=== PATIENT | female | born 1960 | race Caucasian/White ===

== ENCOUNTER 2016-03-15 16:56 | Emergency (ER) | payer OTHER ==
[~2016-03-15] VITALS: Ht 157.5 cm; Wt 106.6 kg
[~2016-03-15 16:56] MED LIST: ADVAIR HFA 230M12 GM; FLEXERIL PO; GABAPENTIN600 M1; HYDROCODONE-APA1 TA1 PO; LANTUS; LISINOPRIL10 MG; NOVOLOG100 UNIT/1; VENTOLIN HFA 1818 GM; ZOCOR20 MG
[2016-03-15] MEDS ORDERED: HYDROCODON-ACE1 EAC7 PO (17:12)
[2016-03-15 17:13] LABS: URINE BILIRUBIN NEGATIVE (Negative); URINE BLOOD 3+ (Negative); URINE COLOR YELLOW; URINE GLUCOSE-RANDOM* 3+ (Negative); URINE KETONES NEGATIVE (Negative); URINE LEUKOCYTES-REFLEX TRACE (Negative); URINE PROTEIN (DIPSTICK) TRACE (Negative); URINE SPECIFIC GRAVITY <= 1.005 (1.003-1.035)
[2016-03-15] MEDS ORDERED: ASPIR 8181 MG PO (17:13)
[2016-03-15 17:22] LABS: CASTS None Seen /LPF (None Seen); SQUAMOUS >10 Many /LPF (0-3)
[2016-03-15 17:23] LABS: CRYSTALS None Seen /LPF (None Seen); URINE RBC 0-2 Rare /HPF (0-2); URINE WBC-REFLEX 6-15 Few /HPF (0-5); WBC CLUMPS Few (None Seen)
[2016-03-15 17:27] LABS: ABSOLUTE NEUTROPHILS 4.6 thou/uL (1.4-8.2); BASOPHILS 1.2 % (0.0-2.0); EOSINOPHILS 2.9 % (0.0-3.0); HEMATOCRIT 43.4 % (37.0-47.0); HEMOGLOBIN 14.8 gm/dL (12.0-15.0); LYMPHOCYTES 31.4 % (24.0-44.0); MCH 29.8 pg (26.0-34.0); MCHC 34.2 % (28.0-37.0); MCV 87.2 fL (80.0-100.0); MONOCYTES 7.2 % (1.0-8.0); PLATELET COUNT 208 thou/uL (150-400); POLYS 57.3 % (36.0-66.0); RBC 4.98 mil/uL (4.20-5.00); RDW 13.6 % (10.5-14.5)
[2016-03-15 17:29] LABS: MANUAL DIFF NO
[2016-03-15 17:42] LABS: CALCIUM 8.9 mg/dL (8.5-10.1); CREATININE 0.9 mg/dL (0.6-1.3); POTASSIUM 4.8 mmol/L (3.5-5.1)
[2016-03-15] MEDS ORDERED: KEFLEX500 MG PO (18:28)
[2016-03-15] MEDS ORDERED: NORCO 5-325 TA1 EACH PO (18:28)
[2016-03-15 18:41] VITALS: BP 103/73
== END 2016-03-15 18:43 | disposition home or self-care (01) ==
LOC: ER 16:56
PROVIDERS: Emergency Medicine
DX: S40.021A Contusion of right upper arm, initial encounter (principal); S90.122A Contusion of left lesser toe(s) without damage to nail, initial encounter; L03.032 Cellulitis of left toe; E11.65 Type 2 diabetes mellitus with hyperglycemia; N39.0 Urinary tract infection, site not specified; F17.210 Nicotine dependence, cigarettes, uncomplicated; W19.XXXA Unspecified fall, initial encounter; Y93.89 Activity, other specified; Y92.89 Other specified places as the place of occurrence of the external cause; Y99.8 Other external cause status

== ENCOUNTER 2016-07-05 17:26 | Emergency (ER) | payer OTHER ==
[~2016-07-05] VITALS: Ht 157.5 cm; Wt 106.1 kg
[~2016-07-05 17:26] MED LIST changes: +ADVAIR HFA 230M12 GM INH; +ASPIR 8181 MG PO; +HYDROCODON-ACE1 EAC7 PO; +KEFLEX500 MG PO; +MOBIC15 MG PO; +NORCO 5-325 TA1 EACH PO
[2016-07-05] MEDS ORDERED: NORCO 5-325 TA1 EACH PO (18:32)
[2016-07-05 19:48] VITALS: BP 138/73
== END 2016-07-05 19:49 | disposition home or self-care (01) ==
LOC: ER 17:26
DX: S80.02XA Contusion of left knee, initial encounter (principal); S80.01XA Contusion of right knee, initial encounter; L30.4 Erythema intertrigo; E66.8 Other obesity; E11.42 Type 2 diabetes mellitus with diabetic polyneuropathy; F17.210 Nicotine dependence, cigarettes, uncomplicated; Z88.2 Allergy status to sulfonamides; W18.39XA Other fall on same level, initial encounter; Y93.89 Activity, other specified; Y92.89 Other specified places as the place of occurrence of the external cause; Y99.8 Other external cause status

== ENCOUNTER 2016-07-26 01:04 | Emergency (ER) | payer OTHER ==
[~2016-07-26] VITALS: Ht 154.9 cm; Wt 107.5 kg
[2016-07-26] MEDS ORDERED: CLEOCIN HCL150 MG PO (03:28)
[2016-07-26 03:39] VITALS: BP 121/87
== END 2016-07-26 03:44 | disposition home or self-care (01) ==
LOC: ER 01:04
DX: H66.41 Suppurative otitis media, unspecified, right ear (principal); E11.9 Type 2 diabetes mellitus without complications; F17.210 Nicotine dependence, cigarettes, uncomplicated; Z88.2 Allergy status to sulfonamides; Z79.4 Long term (current) use of insulin

== ENCOUNTER 2016-10-03 02:13 | Inpatient (IN) | payer OTHER ==
[2016-10-03] VITALS (13 sets, daily range): BP systolic 96–149; BP diastolic 58–95
[~2016-10-03] VITALS: Ht 154.9 cm; Wt 110.7 kg
--- NOTE | ~2016-10-03 | EKG ---
[address] [address] ELECTROCARDIOGRAM REPORT Name: LIANET PERDUE Room #: 214-[facility] IN M.R.#: [id number] Admission: 10/03/16 Attend Phys: Delvin Hollingsworth MD Discharge: 10/04/16 Date of : 62 Report #: [id number] THIS REPORT FOR: //name// [facility] Test Date: 2016-10-03 Test Time: 15:14:37 Pat Name: LIANET PERDUE Department: Room: 214 Gender: F Sharepoint Consultant: emeka : 1960 Requested By: Royer Aquino Order Number: [id number] MD: Royer Aquino Measurements Intervals [place] Rate: 86 P: 61 WV: 205 QRS: 13 QRSD: 88 T: 52 QT: 382 QTc: 457 Interpretive Statements Sinus rhythm Borderline prolonged WV interval Anterior infarct, old Compared to ECG 10/03/2016 02:19:45 No significant change Electronically Signed On 10-04-2016 15:43:24 CDT by Royer Aquino [email or web address] <ELECTRONICALLY SIGNED> By: Royer Aquino MD 10/04/16 1543 1514 13 Royer Aquino MD /MIRANDA
--- NOTE | ~2016-10-03 | HC ---
[facility] [place] [address] CONSULTATION Name: LIANET PERDUE Room #: 214-P [facility] IN ..#: [id number] Admission: 10/03/16 Attend Phys: Delvin Hollingsworth MD Discharge: Date of : 62 Report #: [id number] THIS REPORT FOR: //name// CC: Delvin Hollingsworth NO PCP INDICATION: Chest pains. HISTORY OF PRESENT ILLNESS: This is a 56-year-old female with multiple CAD risk factors presenting with chest discomfort. She reported a tightness in the substernal area, nonradiating. It was not associated with any shortness of breath or diaphoresis. It would come and go, with no particular pattern. The patient has a history of obesity with diminished ambulation secondary to back pains. Recently, she has been experiencing episodes or diaphoresis after eating. She does have poorly controlled diabetes mellitus. She takes medications for underlying hypertension, hypercholesterolemia and asthma. There is no history of fever, PND or orthopnea. PAST MEDICAL HISTORY: Diabetes mellitus, hypertension, hypercholesterolemia, obesity, and general debility. MEDICATIONS: Include aspirin once a day, Advair inhaler, simvastatin 10 mg daily, Zestril 10 mg daily, insulin. ALLERGIES: SULFA. SOCIAL HISTORY: Half a pack of cigarettes per day. FAMILY HISTORY: Negative for premature CAD. REVIEW OF SYSTEMS: A full 10-point review of systems performed. Only the pertinent positives and negatives are described in the HPI. PHYSICAL EXAMINATION: VITAL SIGNS: Blood pressure is 120/70, heart rate is 100 beats per minute. GENERAL APPEARANCE: Is an overweight female in no acute respiratory distress. HEAD AND EYES: Normocephalic. Sclerae anicteric. ENT: Oral mucosa moist. NECK: Supple. LUNGS: Diminished breath sounds at the bases. CARDIAC: Distant heart sounds, S1, S2 positive. ABDOMEN: Soft, protuberant, bowel sounds positive. EXTREMITIES: No major joint deformities. No cyanosis. ECG reveals sinus rhythm, Q-waves in leads V1 through V3 and leads III and aVF. LABORATORY VALUES: White count is 8.7, hemoglobin is 13.5, troponins are [facility] [address] [place] [address] CONSULTATION Name: LIANET PERDUE Shantanu Room #: 214-P [facility] IN .R.#: [id number] Admission: 10/03/16 Attend Phys: Delvin Hollingsworth MD Discharge: Date of : 62 Report #: [id number] negative. Sodium is 129, creatinine is 1.2. IMPRESSION/PLAN: 1. Acute coronary syndrome. The patient has significant CAD risk factors as described above. In addition, the ECG reveals prior infarct. We discussed the pros and cons of noninvasive stress testing versus cardiac catheterization. Given her history on presentation, the plan is to proceed with a cardiac catheterization. All questions were answered. The patient understands and wishes to proceed. 2. Diabetes mellitus, as per primary. Continue with insulin regimen. 3. Hypertension, continue with the MARCELLA inhibitor. 4. Tobacco use, complete smoking cessation is recommended. 5. Hypercholesterolemia, continue with statin therapy. <ELECTRONICALLY SIGNED> By: Royer Aquino MD 10/03/16 2038 1022 1125 Royer Aquino MD /nt
--- NOTE | ~2016-10-03 | CATHLAB ---
[facility] [place] [address] INVASIVE PROCEDURE REPORT Name: LIANET PERDUE Room #: 214-P ADM IN M.R.#: [id number] Admission: 10/03/16 Attend Phys: Ruben Garcia Discharge: Date of : 62 Date of Service: 10/03/16 1434 Report #: [id number] THIS REPORT FOR: //name// APPROVED REPORT Patient Details Patient Status: In-Patient Room #: The patient is a 56 year-old female Event Personnel Royer Aquino Granulator Operator, Kenton Quinn Monitor, Yoni Hensley Monitor, Antonella Marshall RN RN, , Torri Lr RN RN, Leanna Long Scrub Procedures Performed Art Access - R radial artery LINETTE Place w/wo Plasty Single RAMUS Inter 713021 Left Heart Cath w/or w/o Coronaries [id number] [facility] [address] Initial Mod Sed Same Phys/QHP Gr5y 723216 Indication Unstable angina Risk Factors Hypercholesterolemia, Hypertension, Diabetes Tobacco History () Procedure Narrative The patient was brought urgently to the Cardiac Catheterization Laboratory and was prepped and draped in a sterile manner. The Right Wrist^ was infiltrated with 1% Lidocaine subcutaneous anesthesia. A TRANSRADIAL SLENDER 6F iMICROQDESHipLogiqTH KIT #[id number] sheath was inserted into the Right Radial Artery^. Coronary angiography was performed using coronary diagnostic catheters. The right coronary system was accessed and visualized with a JR 4 catheter. The left coronary system was accessed and visualized with a JL 3.5 catheter. The left ventricle was accessed and visualized with a Pigtail catheter. Left ventricular/Aortic Valve gradient assessed via catheter pullback. Left ventriculogram was performed in 30 degree projection. The patient tolerated the procedure well and there were no complications associated with the procedure. There was no hematoma. Intraoperative Conscious Sedation Sedation start time: 12:44 Case end Time: 13:40 Fentanyl 25 mcg Versed 2 mg [facility] [place] [place] [address] INVASIVE PROCEDURE REPORT Name: IRONLIANET Shantanu Room #: 214-P [facility] IN ..#: [id number] Admission: 10/03/16 Attend Phys: Ruben Garcia Discharge: Date of : 62 Date of Service: 10/03/16 1434 Report #: [id number] Fluoro Time: 12.29 minutes Dose: DAP 52565.15 cGycm2 2430 mGy Contrast Type and Amount: Visipaque 265 ml Coronary Angiography The patient's coronary anatomy is co- dominant. Diagnostic Cath Left Main No flow-limiting lesions LAD Moderate stenosis in mid segment, 40%. Mild diffuse disease in distal segment, 30%. Circumflex Codominant vessel with mild diffuse disease in proximal and mid segments, 30%. OM1 No flow-limiting lesions OM2 No flow-limiting lesions Right Coronary Modest stenosis in mid segment, 50-60%. Ramus Moderate size caliber vessel with a severe proximal stenosis, 95%. Left Ventriculography The left ventricle is normal in size with normal contractility. The left ventricular ejection fraction is estimated to be 60%. Hemodynamics The aortic pressure is 101/65 mmHg with a mean of 83 mmHg. The left ventricular pressure is 127/11 mmHg with a mean of mmHg. The left ventricular end diastolic pressure is 25 mmHg. PCI Technique Lesion Anticoagulation was achieved with Heparin. Patient was preloaded with Brillinta. Percutaneous coronary intervention was performed on the ramus intermedius segment. The lesion stenosis prior to intervention was 99% with YARELIS 3 flow. A VISTA 6FR JL3.5 #100897 Guide Catheter was used to engage the LCA ostium. A Luge Interventional Guidewire was used to cross the lesion. BALLOON DILATION A Balloon catheter MOBi-LEARNphora RX 2.5 x 15 #[id number] was inserted and inflated up to 6.00atm for 18seconds. Additional Inflation: 6.00atm for 8seconds. STENT DEPLOYMENT [facility] [address] [place] [address] INVASIVE PROCEDURE REPORT Name: IRONLIANET Shantanu Room #: 214-P [facility] IN M.R.#: [id number] Admission: 10/03/16 Attend Phys: Ruben Garcia Discharge: Date of : 62 Date of Service: 10/03/16 1434 Report #: [id number] A drug-eluting stent RESOLUTE RX 3.0 X 15 #[id number] was inserted and inflated up to 10.00atm for 29seconds. Additional Inflation: 10.00atm for 30seconds. POST STENT DEPLOYMENT BALLOON DILATION A Balloon catheter TREK NC RX 3.0 X 12 #[id number] was inserted and inflated up to 16.00atm for 14seconds. Additional Inflation: 18.00atm for 13seconds. COMMENTS Successful insertion of a drug-eluting stent into the proximal ramus artery with YARELIS-3 blood flow and minimal residual stenosis at the lesion site. Conclusion 1. Successful insertion of a drug-eluting stent into the proximal Ramus artery. 2. Mild to moderate disease as listed above. 3. Recommend dual antiplatelet therapy for at least one year. 4. Recommend risk factor management including complete smoking cessation. Recommendations Smoking Cessation Aggressive Medical Therapy <ELECTRONICALLY SIGNED> By: Royer Aquino MD 10/03/16 1434 1434 1434 Royer Aquino MD /INF
--- NOTE | ~2016-10-03 | EKG ---
[address] [address] ELECTROCARDIOGRAM REPORT Name: LIANET PERDUE Room #: 214-[facility] IN M.R.#: [id number] Admission: 10/03/16 Attend Phys: Delvin Hollingsworth MD Discharge: 10/04/16 Date of : 62 Report #: [id number] THIS REPORT FOR: //name// [facility] Test Date: 2016-10-04 Test Time: 08:02:55 Pat Name: LIANET PERDUE Department: Room: 214 P Gender: F Dress Fitter: emeka : 1960 Requested By: Royer Aquino Order Number: [id number] MD: Royer Aquino Measurements Intervals [place] Rate: 94 P: 61 [place]: 197 QRS: 3 QRSD: 79 T: 46 QT: 348 QTc: 436 Interpretive Statements Sinus rhythm Borderline prolonged [place] interval Anterior infarct, old Compared to ECG 10/03/2016 02:19:45 No change Electronically Signed On 10-04-2016 15:47:48 CDT by Royer Aquino [email or web address] <ELECTRONICALLY SIGNED> By: Royer Aquino MD 10/04/16 1547 08 1 MD HAYDEN Arroyo
--- NOTE | ~2016-10-03 | EKG ---
[address] [address] ELECTROCARDIOGRAM REPORT Name: LIANET PERDUE Room #: 214-P ADM IN M.R.#: [id number] Admission: 10/03/16 Attend Phys: Delvin Hollingsworth MD Discharge: Date of : 62 Report #: [id number] THIS REPORT FOR: //name// [facility] ED Test Date: 2016-10-03 Test Time: 02:19:45 Pat Name: LIANET PERDUE Department: Room: 214 Gender: F Modeling And Simulation Analyst: JORGE : 1960 Requested By: Hamilton Mcghee Order Number: [id number] MD: Royer Aquino Measurements Intervals [place] Rate: 109 P: 66 MS: 192 QRS: -12 QRSD: 91 T: 56 QT: 345 QTc: 465 Interpretive Statements Sinus tachycardia Abnormal inferior Q waves Anterior infarct, old No previous ECG available for comparison Electronically Signed On 10-03-2016 14:18:22 CDT by Royer Aquino [email or web address] <ELECTRONICALLY SIGNED> By: Royer Aquino MD 10/03/16 1418 0219 0219 Royer Aquino MD /MIRANDA
[~2016-10-03 02:13] MED LIST changes: +CLEOCIN HCL150 MG PO
[2016-10-03 03:31] LABS: ABSOLUTE NEUTROPHILS 4.2 thou/uL (1.4-8.2); BASOPHILS 1.2 % (0.0-2.0); HEMATOCRIT 40.8 % (37.0-47.0); LYMPHOCYTES 45.2 % (24.0-44.0); MCH 29.8 pg (26.0-34.0); MCHC 34.4 g/dL (28.0-37.0); MCV 86.8 fL (80.0-100.0); PLATELET COUNT 219 thou/uL (150-400); POLYS 44.6 % (36.0-66.0); RDW 13.3 % (10.5-14.5); WBC 9.5 thou/uL (4.0-11.0)
[2016-10-03 03:32] LABS: MANUAL DIFF NO
[2016-10-03 03:42] LABS: ANION GAP 10 mmol/L (7-16); BUN 21 mg/dL (7-18); CALCIUM 9.3 mg/dL (8.5-10.1); CHLORIDE 96 mmol/L (98-107); CO2 23 mmol/L (21-32); CREATININE 1.2 mg/dL (0.6-1.0); SODIUM 129 mmol/L (136-145)
[2016-10-03 03:43] LABS: GLUCOSE 582 mg/dL (74-106)
[2016-10-03 03:55] LABS: NT-PRO BRAIN NAT PEPTIDE 234 pg/mL (<300); TROPONIN-I < 0.04 ng/mL (<0.04-0.07)
[2016-10-03 05:32] LABS: APTT 26.8 Seconds (24.5-32.8); PROTIME 9.4 Seconds (9.3-11.4)
[2016-10-03 05:35] LABS: HEMATOCRIT 39.7 % (37.0-47.0); HEMOGLOBIN 13.5 gm/dL (12.0-15.0); MCH 29.6 pg (26.0-34.0); MCHC 33.9 g/dL (28.0-37.0); MCV 87.4 fL (80.0-100.0); RBC 4.55 mil/uL (4.20-5.00); RDW 13.4 % (10.5-14.5); WBC 8.7 thou/uL (4.0-11.0)
[2016-10-04 02:43] LABS: HEMOGLOBIN 12.5 gm/dL (12.0-15.0); MCH 29.5 pg (26.0-34.0); MCHC 33.6 g/dL (28.0-37.0); MCV 87.9 fL (80.0-100.0); RBC 4.21 mil/uL (4.20-5.00); RDW 13.4 % (10.5-14.5); WBC 10.5 thou/uL (4.0-11.0)
[2016-10-04 03:01] LABS: ANION GAP 4 mmol/L (7-16); BUN 20 mg/dL (7-18); CALCIUM 8.4 mg/dL (8.5-10.1); CHLORIDE 100 mmol/L (98-107); CO2 27 mmol/L (21-32); CREATININE 0.9 mg/dL (0.6-1.0); GLUCOSE 297 mg/dL (74-106); POTASSIUM 4.2 mmol/L (3.5-5.1); SODIUM 131 mmol/L (136-145); TROPONIN-I < 0.04 ng/mL (<0.04-0.07)
[2016-10-04 04:31] VITALS: BP 117/61
[2016-10-04] MEDS ORDERED: BRILINTA90 MG PO (09:20)
[2016-10-04] MEDS ORDERED: ZOCOR20 MG PO (09:23)
[2016-10-04 10:40] VITALS: BP 117/61
== END 2016-10-04 11:18 | disposition home or self-care (01) | DRG 249 ==
LOC: ER 02:13 → EROBS 04:59 → 2N 08:00
PROVIDERS: Emergency Medicine; Hospitalist
PROC: B2111ZZ Fluoroscopy of Multiple Coronary Arteries using Low Osmolar Contrast (ICD-10-PCS; principal; 2016-10-03)
PROC: 4A023N7 Measurement of Cardiac Sampling and Pressure, Left Heart, Percutaneous Approach (ICD-10-PCS; principal; 2016-10-03)
PROC: B2151ZZ Fluoroscopy of Left Heart using Low Osmolar Contrast (ICD-10-PCS; principal; 2016-10-03)
PROC: 02703DZ Dilation of Coronary Artery, One Artery with Intraluminal Device, Percutaneous Approach (ICD-10-PCS; principal; 2016-10-03)
DX: I25.10 Atherosclerotic heart disease of native coronary artery without angina pectoris (principal); E87.1 Hypo-osmolality and hyponatremia; I24.9 Acute ischemic heart disease, unspecified; N17.9 Acute kidney failure, unspecified; E78.00 Pure hypercholesterolemia, unspecified; I10 Essential (primary) hypertension; F17.210 Nicotine dependence, cigarettes, uncomplicated; J45.909 Unspecified asthma, uncomplicated; E11.65 Type 2 diabetes mellitus with hyperglycemia; E78.5 Hyperlipidemia, unspecified; J44.9 Chronic obstructive pulmonary disease, unspecified; Z71.6 Tobacco abuse counseling; Z79.4 Long term (current) use of insulin; Z88.2 Allergy status to sulfonamides
CPT/HCPCS: 10194

== ENCOUNTER 2016-10-09 19:17 | Emergency (ER) | payer OTHER ==
[~2016-10-09] VITALS: Ht 154.9 cm; Wt 107.5 kg
--- NOTE | ~2016-10-09 | EKG ---
[address] [address] [facility] [employer] [place] [address] ELECTROCARDIOGRAM REPORT Name: LIANET PERDUE Room #: DEP Alexis#: [id number] Admission: 10/09/16 Attend Phys: Discharge: 10/09/16 Date of : 62 Report #: [id number] THIS REPORT FOR: //name// [facility] ED Test Date: 2016-10-09 Test Time: 19:29:45 Pat Name: LIANET PERDUE Department: Room: Gender: F Wire Sawyer: MZOOK : 1960 Requested By: Caren Hensley Order Number: [id number] MD: Jeff Hodge Measurements Intervals [place] Rate: 105 P: 66 NV: 198 QRS: -16 QRSD: 80 T: 57 QT: 337 QTc: 446 Interpretive Statements Sinus tachycardia Borderline prolonged NV interval Borderline left axis deviation Anterior infarct, old Baseline wander in lead(s) II,III,aVF Compared to ECG 10/04/2016 08:02:55 Sinus rhythm no longer present Myocardial infarct finding still present Electronically Signed On 10-11-2016 22:12:31 CDT by Jeff Hodge [email or web address] <ELECTRONICALLY SIGNED> By: Jeff Hodge MD 10/11/16 2212 28 28 Jeff Hodge MD /EPI
[~2016-10-09 19:17] MED LIST changes: +BRILINTA90 MG PO; +ZOCOR20 MG PO
[2016-10-09 19:57] LABS: ABSOLUTE NEUTROPHILS 6.1 thou/uL (1.4-8.2); BASOPHILS 1.3 % (0.0-2.0); EOSINOPHILS 2.4 % (0.0-3.0); HEMATOCRIT 40.6 % (37.0-47.0); HEMOGLOBIN 13.8 gm/dL (12.0-15.0); LYMPHOCYTES 28.5 % (24.0-44.0); MANUAL DIFF NO; MCHC 34.1 g/dL (28.0-37.0); MCV 88.1 fL (80.0-100.0); MONOCYTES 5.4 % (1.0-8.0); PLATELET COUNT 232 thou/uL (150-400); POLYS 62.4 % (36.0-66.0); RBC 4.61 mil/uL (4.20-5.00); RDW 13.4 % (10.5-14.5); WBC 9.8 thou/uL (4.0-11.0)
[2016-10-09 20:07] LABS: ANION GAP 6 mmol/L (7-16); BUN 18 mg/dL (7-18); CALCIUM 9.3 mg/dL (8.5-10.1); CHLORIDE 100 mmol/L (98-107); CO2 29 mmol/L (21-32); GLUCOSE 276 mg/dL (74-106); POTASSIUM 4.3 mmol/L (3.5-5.1); SODIUM 135 mmol/L (136-145)
[2016-10-09 20:16] LABS: TROPONIN-I < 0.04 ng/mL (<0.04-0.07)
== END 2016-10-09 23:07 | disposition home or self-care (01) ==
LOC: ER 19:17
PROVIDERS: Emergency Medicine
DX: R07.89 Other chest pain (principal); E11.9 Type 2 diabetes mellitus without complications; J45.909 Unspecified asthma, uncomplicated; F17.210 Nicotine dependence, cigarettes, uncomplicated; Z88.2 Allergy status to sulfonamides

== ENCOUNTER 2016-10-29 15:44 | Inpatient (IN) | payer OTHER ==
[~2016-10-29] VITALS: Ht 154.9 cm; Wt 107.0 kg
--- NOTE | ~2016-10-29 | HC ---
[facility] [place] [address] CONSULTATION Name: LIANET PERDUE Shantanu Room #: 453-P [facility] IN ..#: [id number] Admission: 10/29/16 Attend Phys: Delvin Hollingsworth MD Discharge: Date of : 62 Report #: [id number] THIS REPORT FOR: //name// CC: Esequiel Hollingsworth DATE OF SERVICE: 10/31/2016 CHIEF COMPLAINT: Ulceration to the left lateral ankle. HISTORY OF PRESENT ILLNESS: This is a 56-year-old female patient who was admitted through the wound center after seeing Dr. Earl and yesterday, she was noted to have a necrotic area on her left lateral ankle, history of poorly controlled diabetes. She was admitted to the hospital. She has undergone angiography, which did not demonstrate any significant vascular disease. She underwent surgical debridement with unroofing and drainage of an abscess by Dr. Whitaker. I have been asked to see her with regard to ongoing wound care. PAST MEDICAL HISTORY: Positive for history of poorly controlled diabetes, peripheral neuropathy, frequent falls and urinary tract infection. ALLERGIES: SULFA. MEDICATIONS: Include hydrocodone, aspirin, Advair, lisinopril, insulin. SOCIAL HISTORY: Positive for smoking cigarettes, less than 1 pack per day. Negative for significant alcohol use. FAMILY HISTORY: Positive for heart disease, cancer, diabetes and hypertension. REVIEW OF SYSTEMS: CONSTITUTIONAL: The patient denies fever, chills or weight loss. NEUROLOGICAL: The patient denies focal weakness. Does have peripheral neuropathy. ENT: The patient denies earache, nasal drainage or sore throat. CARDIOVASCULAR: The patient denies chest pain or palpitations, diaphoresis. PULMONARY: The patient denies cough or shortness of breath. GASTROINTESTINAL: The patient denies nausea, vomiting, diarrhea or . ORTHOPEDIC: The patient denies pain, but notes swelling as well as ulceration of the left lateral lower extremity. ENDOCRINE: The patient denies heat or cold intolerance, polydipsia, polyphagia and polyuria. Other systems and 12-point review of systems are negative. PHYSICAL EXAMINATION: VITAL SIGNS: At this time include pulse rate 95, respiration is 16, blood pressure 113/57 and temperature is 98.5. [address] [address] CONSULTATION Name: LIANET PERDUE Room #: 453-P [facility] IN .R.#: [id number] Admission: 10/29/16 Attend Phys: Delvin Hollingsworth MD Discharge: Date of : 62 Report #: [id number] GENERAL: This is a somewhat overweight appearing female. The patient appears to be in no distress. HEENT: Normocephalic. Nose and throat clear. NECK: Supple. LUNGS: Clear. HEART: Regular. ABDOMEN: Soft, bowel sounds present. EXTREMITIES: Examination of the lower extremities demonstrate a circular ulceration over the left lateral malleolus. There is a mix of granulation and some fibrinous material. There is no exposed bone or tendon at this time. Distally, she has diminished, but yet palpable pulses. CLINICAL IMPRESSION: 1. An abscess and diabetic ulceration to the left lateral ankle, now status post surgical debridement, excision as well as drainage of an abscess. 2. Diabetes mellitus. 3. History of possible peripheral vascular disease with recent normal angiography. RECOMMENDATIONS: At this point in time, we will recommend packing the lateral ankle with silver alginate material covered with a secondary dressing with gauze to be changed daily and as needed, antibiotics, pending cultures, aggressive nutritional support. <ELECTRONICALLY SIGNED> By: Walt Cisse MD 11/01/16 1232 1630 0720 Walt Cisse MD /nt
--- NOTE | ~2016-10-29 | O ---
[facility] [address] OPERATIVE REPORT Name: LIANET PERDUE Room #: 453-P ADM IN M.R.#: [id number] Admission: 10/29/16 Attend Phys: Delvin Hollingsworth MD Discharge: Date of : 62 Report #: [id number] THIS REPORT FOR: //name// CC: Esequiel Hollingsworth DATE OF SERVICE: 10/30/2016 DATE OF SERVICE: 10/30/2016 PREOPERATIVE DIAGNOSIS: Abscess lateral aspect of the left ankle with overlying 3 cm skin eschar and underlying abscess with cellulitis. POSTOPERATIVE DIAGNOSIS: Abscess lateral aspect of the left ankle with overlying 3 cm skin eschar and underlying abscess with cellulitis. PROCEDURE: Excisional debridement of 3 cm skin eschar with evacuation of a soft tissue abscess. SURGEON: Kevin Whitaker MD CANAL SUPERINTENDENT: Kun Maynard MS3. INDICATIONS: A 56-year-old lady with a 1 month progression of an abscess and skin eschar on the lateral aspect of the left ankle. This is not resolved with antibiotic therapy. OPERATIVE PROCEDURE: The patient had thorough discussion of procedure, benefits and risks. She gave informed consent to proceed. She was brought to the operating room suite and had satisfactory lower extremity nerve block. After sterile paint and prep with Betadine solution, elliptical excision of the 3 cm skin eschar was performed. Immediately underlying the eschar was purulent material. Cultures for aerobes, anaerobes was obtained. Breaking up the loculations of the subcutaneous soft tissue abscess was performed. Copious irrigation with saline was performed. Hemostasis was complete. The wound was packed open with iodoform quarter inch gauze. The patient had a sterile dressing wrapped around the ankle and lower extremity. She returned directly to recovery room in stable and satisfactory condition. ESTIMATED BLOOD LOSS: Less than 2 mL. <ELECTRONICALLY SIGNED> By: Kevin Whitaker MD, FACS 10/31/16 1657 1156 1223 Kevin Whitaker MD, FACS /nt
--- NOTE | ~2016-10-29 | S ---
[facility] [place] [address] SURGICAL PATH RPT PROCEDURE Name: LIANET PERDUE Room #: 453-P DIS IN M.R.#: [id number] Admission: 10/29/16 Date of : 62 Discharge: 11/03/16 Report #: [id number] Path Case #: [id number] PATHOLOGY REPORT COLLECTION DATE: 10/30/2016 RECEIVED DATE: 10/30/2016 SUBMITTING PHYS: Dr. Darrick Hargrove OTHER PHYS: Dr. Esequiel Garibay SPECIMEN(S) RECEIVED: A.Necrotic tissue left ankle * * * * * * * * * * * * FINAL DIAGNOSIS: Necrotic tissue left ankle, debridement: - Marked acute inflammation, gangrenous necrosis, as well as regeneration, consistent with debridement. (IUV:mgr; 11/03/2016) PATHOLOGIST: Kyleigh Armando M.D. REPORT ELECTRONICALLY SIGNED BY: Kyleigh Armando M.D. DATE/TIME: 11/03/2016 16:38 * * * * * * * * * * * * GROSS PATHOLOGY: The specimen is received in formalin labeled "Lianet Perdue, necrotic tissue left ankle". Received is a segment of schwartz-brown 2 necrotic-appearing soft tissue measuring 1.4 x 1.2 x 0.5 cm in greatest dimensions. The specimen is submitted entirely in cassette A1. (CAA; 10/31/2016) CLINICAL HISTORY: Cellulitis INITIAL CPT CODE(S): A; 56358 Professional services performed by [facility] at [facility] [address], [place] [address] Technical services performed by [facility] at [address] [place] [address]. [facility] [address] [place] [address] SURGICAL PATH RPT PROCEDURE Name: LIANET PERDUE Room #: 453-P DIS IN M.R.#: [id number] Admission: 10/29/16 Date of : 62 Discharge: 11/03/16 Report #: [id number] Path Case #: [id number] [address] PHONE: [phone] DIRECTOR: Levi Cespedes M.D. * * * END OF REPORT * * *
--- NOTE | ~2016-10-29 | EKG ---
[address] [place] [address] ELECTROCARDIOGRAM REPORT Name: LIANET PERDUE Room #: 453-P ADM IN M.R.#: [id number] Admission: 10/29/16 Attend Phys: Delvin Hollingsworth MD Discharge: Date of : 62 Report #: [id number] THIS REPORT FOR: //name// [facility] Test Date: 2016-10-30 Test Time: 09:47:11 Pat Name: LIANET PERDUE Department: Room: 453 Gender: F Medical Records Administrator: JATINDER : 1960 Requested By: Kevin Whitaker Order Number: [id number] MD: Carlos Esquivel Measurements Intervals [place] Rate: 116 P: 86 CO: 176 QRS: 44 QRSD: 83 T: 41 QT: 315 QTc: 438 Interpretive Statements Sinus tachycardia Otherwise no significant abnormality Baseline wander in lead(s) V2 Compared to ECG 10/09/2016 19:29:45 No significant change was found Electronically Signed On 11-02-2016 13:22:54 CDT by Carlos Esquivel [email or web address] <ELECTRONICALLY SIGNED> By: Carlos Esquivel MD, [facility] 11/02/16 1322 0947 0947 Carlos Esquivel MD, [facility] /EPI
--- NOTE | ~2016-10-29 | HC ---
[facility] [place] [address] CONSULTATION Name: LIANET PERDUE Shantanu Room #: 453-P [facility] IN ..#: [id number] Admission: 10/29/16 Attend Phys: Delvin Hollingsworth MD Discharge: Date of : 62 Report #: [id number] THIS REPORT FOR: //name// CC: Esequiel Hollingsworth DATE OF SERVICE: 10/30/2016 HISTORY OF PRESENT ILLNESS: I have been asked to evaluate this 56-year-old female with a past history of significant hypertension, coronary artery stent placed approximately 3 weeks ago. She has hypercholesterolemia and poorly controlled diabetes. The patient has a lateral aspect left ankle wound that has been apparent and progressive over the last 2 months. This is inflamed, dark, central eschar of the skin is approximately 3 cm in diameter. There is surrounding erythema. She denies other lesions of the left lower extremity or the right lower extremity. PAST MEDICAL HISTORY: Consistent with a medical surgical history 1995 ectopic , diabetes mellitus, right ankle surgery, asthma, hypercholesterolemia, coronary artery disease with stenting 3 weeks ago, generalized debility, obesity, and peripheral neuropathy. CURRENT MEDICATIONS: Aspirin 81 mg daily, Advair daily, Zestril, NovoLog 30 units with meals, Lantus insulin 120 units as well as the , the anticoagulant for the cardiac stenting. ALLERGIES: SULFA MEDICATIONS. SOCIAL HISTORY: She is a current smoker, less than a pack a day, does not use alcohol. FAMILY HISTORY: Consistent with cardiac disease, cancer, diabetes, and hypertension. REVIEW OF SYSTEMS: A 10-point review of systems essentially noncontributory except for the developing abscess and cellulitis of lateral aspect of the left ankle, lateral malleolus over recent months. PHYSICAL EXAMINATION: GENERAL: Reveals the patient is alert, cooperative, and resting comfortably, afebrile, friend in the room. HEENT: Pupils are equal, round, react to light. Extraocular movements normal limits. CARDIOVASCULAR: Regular rate and rhythm. LUNGS: Clear bilaterally. ABDOMEN: Obese. [address] [address] CONSULTATION Name: IRONLIANET Shantanu Room #: 453-P ADM IN M.R.#: [id number] Admission: 10/29/16 Attend Phys: Delvin Hollingsworth MD Discharge: Date of : 62 Report #: [id number] EXTREMITIES: A 3 cm eschar lateral aspect of the left malleolus with surrounding erythema and pain and tenderness consistent with an abscess. DIAGNOSTIC IMPRESSION: Left lateral malleolus wound abscess with cellulitis and overlying 3 cm skin eschar. PLAN: I would recommend incision and drainage with excision of the eschar in the operating room today. Thank you for allowing us to participate in her care. Procedure scheduled. <ELECTRONICALLY SIGNED> By: Kevin Whitaker MD, FACS 10/31/16 1657 1153 1844 Kevin Whitaker MD, ELLIS /nt
[2016-10-29 18:15] VITALS: BP 145/97
[2016-10-29 20:53] VITALS: BP 103/58
[2016-10-29 21:42] LABS: ALBUMIN 2.5 g/dL (3.4-5.0); CREATININE 0.9 mg/dL (0.6-1.0); POTASSIUM 4.1 mmol/L (3.5-5.1); TOTAL BILIRUBIN 1.1 mg/dL (<0.1-1.0); TOTAL PROTEIN 7.2 g/dL (6.4-8.2)
[2016-10-29 23:17] LABS: URINE BILIRUBIN NEGATIVE (Negative); URINE BLOOD 1+ (Negative); URINE COLOR YELLOW; URINE GLUCOSE-RANDOM* 3+ (Negative); URINE KETONES NEGATIVE (Negative); URINE LEUKOCYTES-REFLEX NEGATIVE (Negative); URINE PROTEIN (DIPSTICK) 1+ (Negative)
[2016-10-29 23:30] LABS: SQUAMOUS 0-3 Few /LPF (0-3)
[2016-10-29 23:31] LABS: CASTS None Seen /LPF (None Seen); CRYSTALS None Seen /LPF (None Seen); URINE RBC 0-2 Rare /HPF (0-2); URINE WBC-REFLEX 0-5 Rare /HPF (0-5)
[2016-10-30] VITALS (11 sets, daily range): BP systolic 104–159; BP diastolic 50–96
[2016-10-30 07:12] LABS: HEMOGLOBIN 11.9 gm/dL (12.0-15.0); MCH 29.5 pg (26.0-34.0); MCV 86.9 fL (80.0-100.0); PLATELET COUNT 203 thou/uL (150-400); RBC 4.03 mil/uL (4.20-5.00); RDW 13.3 % (10.5-14.5); WBC 19.2 thou/uL (4.0-11.0)
[2016-10-30 07:14] LABS: MANUAL DIFF YES
[2016-10-30 08:59] LABS: ABSOLUTE NEUTROPHILS 15.6 thou/uL (1.4-8.2); TOTAL CELL COUNT 100
[2016-10-30 09:00] LABS: ANISOCYTOSIS SLIGHT
[2016-10-30 09:58] LABS: CALCIUM 8.4 mg/dL (8.5-10.1); CREATININE 1.6 mg/dL (0.6-1.0); MAGNESIUM 1.7 mg/dL (1.8-2.4); POTASSIUM 4.4 mmol/L (3.5-5.1)
[2016-10-31 04:07] LABS: GLYCOHEMOGLOBIN (HGB A1C) 13.3 % (4.8-5.6)
[2016-10-31 04:30] VITALS: BP 111/60
[2016-10-31 06:00] LABS: HEMATOCRIT 31.3 % (37.0-47.0); HEMOGLOBIN 10.4 gm/dL (12.0-15.0); MCHC 33.1 g/dL (28.0-37.0); MCV 87.5 fL (80.0-100.0); RBC 3.58 mil/uL (4.20-5.00); RDW 13.2 % (10.5-14.5); WBC 16.8 thou/uL (4.0-11.0)
[2016-10-31 06:18] LABS: ALBUMIN 2.1 g/dL (3.4-5.0); CALCIUM 8.8 mg/dL (8.5-10.1); PHOSPHORUS 5.9 mg/dL (2.5-4.9)
[2016-10-31 06:20] LABS: CREATININE 3.1 mg/dL (0.6-1.0)
[2016-10-31 08:10] VITALS: BP 122/73
[2016-10-31 15:35] VITALS: BP 113/57
[2016-10-31 19:06] VITALS: BP 125/71
[2016-11-01 04:20] VITALS: BP 135/77
[2016-11-01 05:24] LABS: HEMATOCRIT 33.4 % (37.0-47.0); MCH 28.8 pg (26.0-34.0); MCHC 32.9 g/dL (28.0-37.0); MCV 87.6 fL (80.0-100.0); RBC 3.81 mil/uL (4.20-5.00); RDW 13.4 % (10.5-14.5); WBC 14.3 thou/uL (4.0-11.0)
[2016-11-01 05:52] LABS: ALBUMIN 2.3 g/dL (3.4-5.0); CALCIUM 9.3 mg/dL (8.5-10.1); CREATININE 3.4 mg/dL (0.6-1.0); PHOSPHORUS 6.3 mg/dL (2.5-4.9); POTASSIUM 3.8 mmol/L (3.5-5.1)
[2016-11-01 20:06] VITALS: BP 147/90
[2016-11-01 22:54] LABS: URINE BILIRUBIN NEGATIVE (Negative); URINE BLOOD 3+ (Negative); URINE COLOR YELLOW; URINE GLUCOSE-RANDOM* NEGATIVE (Negative); URINE KETONES NEGATIVE (Negative); URINE NITRITE NEGATIVE (Negative); URINE PROTEIN (DIPSTICK) TRACE (Negative); URINE UROBILINOGEN 0.2 E.U./dl (0.2-1.0)
[2016-11-01 22:55] LABS: URINE POTASSIUM-RANDOM* 14.1 mmol/L
[2016-11-01 23:28] LABS: SQUAMOUS 4-10 Moderate /LPF (0-3)
[2016-11-01 23:29] LABS: BACTERIA 1-9 Few /HPF (None Seen); CASTS None Seen /LPF (None Seen); CRYSTALS None Seen /LPF (None Seen); URINE RBC 3-10 Few /HPF (0-2); URINE WBC 0-5 Rare /HPF (0-5); YEAST Present (None Seen)
[2016-11-02 03:41] VITALS: BP 152/87
[2016-11-02 04:10] LABS: SMEAR FOR EOSINOPHILS No Eosinophils Seen
[2016-11-02 05:11] LABS: ALBUMIN 2.1 g/dL (3.4-5.0); CALCIUM 8.6 mg/dL (8.5-10.1); PHOSPHORUS 5.2 mg/dL (2.5-4.9); POTASSIUM 4.8 mmol/L (3.5-5.1)
[2016-11-02 08:58] VITALS: BP 146/84
[2016-11-02 12:42] VITALS: BP 145/86
[2016-11-02 15:35] VITALS: BP 134/79
[2016-11-02 20:12] VITALS: BP 153/97
[2016-11-03 03:50] VITALS: BP 147/92
[2016-11-03 07:32] VITALS: BP 129/84
[2016-11-03] MEDS ORDERED: BRILINTA90 MG PO (09:32)
[2016-11-03] MEDS ORDERED: LANTUS SUBQ (09:32)
[2016-11-03] MEDS ORDERED: HUMALOG100 UNIT/1 SUBQ (09:32)
[2016-11-03] MEDS ORDERED: LIPITOR 20 MG T20 M1 PO (09:32)
[2016-11-03 10:22] VITALS: BP 129/84
[2016-11-03 11:08] LABS: ALBUMIN 2.4 g/dL (3.4-5.0); CALCIUM 9.5 mg/dL (8.5-10.1); CREATININE 2.9 mg/dL (0.6-1.0); PHOSPHORUS 4.8 mg/dL (2.5-4.9); POTASSIUM 5.2 mmol/L (3.5-5.1)
== END 2016-11-03 10:55 | disposition home or self-care (01) | DRG 570 ==
LOC: 4N 15:44 → 4W 17:20 → ENTRNSPT 11-03 10:47 → EDTRNSPTSTS 11-03 10:52 → 4W 11-03 10:55
PROVIDERS: Family Medicine; Hospitalist; Nurse Practitioner; Surgery
PROC: 0JBR0ZZ Excision of Left Foot Subcutaneous Tissue and Fascia, Open Approach (ICD-10-PCS; principal; 2016-10-30)
DX: L03.116 Cellulitis of left lower limb (principal); N17.0 Acute kidney failure with tubular necrosis; Z68.41 Body mass index [BMI] 40.0-44.9, adult; L97.329 Non-pressure chronic ulcer of left ankle with unspecified severity; I10 Essential (primary) hypertension; E78.00 Pure hypercholesterolemia, unspecified; I25.10 Atherosclerotic heart disease of native coronary artery without angina pectoris; E66.9 Obesity, unspecified; E11.42 Type 2 diabetes mellitus with diabetic polyneuropathy; F17.210 Nicotine dependence, cigarettes, uncomplicated; E11.622 Type 2 diabetes mellitus with other skin ulcer; E11.51 Type 2 diabetes mellitus with diabetic peripheral angiopathy without gangrene; E78.5 Hyperlipidemia, unspecified; L02.416 Cutaneous abscess of left lower limb; J44.9 Chronic obstructive pulmonary disease, unspecified; Z95.5 Presence of coronary angioplasty implant and graft; Z88.2 Allergy status to sulfonamides; Z82.49 Family history of ischemic heart disease and other diseases of the circulatory system; Z83.3 Family history of diabetes mellitus; Z80.9 Family history of malignant neoplasm, unspecified; Z79.82 Long term (current) use of aspirin; Z79.899 Other long term (current) drug therapy
CPT/HCPCS: 10045; 50010; 50101; 50386; 50403; 62110; 62850; 70005

== ENCOUNTER → 2017-02-18 | Outpatient (CLI) | payer OTHER ==
[~2017-02-18] MED LIST changes: +HUMALOG100 UNIT/1 SUBQ; +LANTUS SUBQ; +LIPITOR 20 MG T20 M1 PO
--- NOTE | ~2017-02-18 | 2DMMODE ---
[facility] [place] [address] 2 D/M-MODE ECHOCARDIOGRAM Name: IRONLIANET PASTOR Room #: REG [facility]#: [id number] Admission: 02/18/17 Attend Phys: Royer Aquino MD Discharge: Date of : 62 Date of Service: 02/18/17 1509 Report #: [id number] THIS REPORT FOR: //name// APPROVED REPORT Study performed: 02/18/2017 14:21:30 EXAM: Comprehensive 2D, Doppler, and color-flow Echocardiogram Patient Location: Out-Patient Status: routine BSA: 2.00 HR: 97 bpm BP: 139/88 mmHg Rhythm: NSR Other Information Study Quality: Adequate Indications History of CAD and stent. 2D Dimensions LVEF(%): 67.61 (>50%) IVSd: 10.78 (7-11mm) LVOT Diam: 21.14 (18-24mm) LVDd: 45.91 mm PWd: 9.96 (7-11mm) Ascending Ao: 31.76 (22-36mm) LVDs: 28.69 (25-40mm) Aortic Root: 35.10 mm Rosales's LVEF: 67.61 % Volumes Left Atrial Volume (Systole) Single Plane 4CH: 43.81 mL Single Plane 2CH: 55.16 mL LA ESV Index: 27.00 mL/m2 Aortic Valve AoV Peak Amol.: 2.03 m/s AO Peak Gr.: 16.49 mmHg LVOT Max P.37 mmHg AO Mean Gr.: 9.14 mmHg AO V2 Mean: 1.44 m/s LVOT Max V: 1.05 m/s AO V2 VTI: 37.78 cm FRANKIE Vmax: 1.81 cm2 Mitral Valve [facility] [place] [address] 2 D/M-MODE ECHOCARDIOGRAM Name: LIANET PERDUE Room #: [facility]#: [id number] Admission: 02/18/17 Attend Phys: Royer Aquino MD Discharge: Date of : 62 Date of Service: 02/18/17 1509 Report #: [id number] E/A Ratio: 0.7 MV Decel. Time: 170.22 ms MV E Max Amol.: 0.92 m/s MV A Amol.: 1.33 m/s MV PHT: 49.36 ms IVRT: 76.12 ms Pulmonary Valve PV Peak Amol.: 1.30 m/s PV Peak Gr.: 6.74 mmHg Pulmonary Vein P Vein S: 0.45 m/s P Vein A: 0.38 m/s P Vein D: 0.50 m/s P Vein A Dur.: 79.6 msec P Vein S/D Ratio: 0.90 Tricuspid Valve RAP Estimate: 5.00 mmHg Left Ventricle The left ventricle is normal size. There is normal LV segmental wall motion. There is normal left ventricular wall thickness. Left ventricular systolic function is normal. LVEF is 65%. Mild diastolic dysfunction is present (impaired relaxation pattern). Right Ventricle The right ventricle is normal size. The right ventricular systolic function is normal. Atria The left atrium size is normal. The right atrium size is normal. Aortic Valve The Aortic valve is mildly sclerotic. No aortic regurgitation is present. There is no aortic valvular stenosis. Mitral Valve The mitral valve is normal in structure. There is no mitral valve regurgitation noted. No evidence of mitral valve stenosis. Tricuspid Valve The tricuspid valve is normal in structure. There is no tricuspid valve regurgitation noted. Unable to assess PA pressure. Pulmonic Valve The pulmonary valve is normal in structure. There is no pulmonic [address] [address] 2 D/M-MODE ECHOCARDIOGRAM Name: LIANET PERDUE Shantanu Room #: REG [facility]#: [id number] Admission: 02/18/17 Attend Phys: Royer Aquino MD Discharge: Date of : 62 Date of Service: 02/18/17 1509 Report #: [id number] valvular regurgitation. Great Vessels The aortic root is normal in size. The ascending aorta is normal in size. IVC is normal in size and collapses >50% with inspiration. Pericardium There is no pericardial effusion. <Conclusion> The left ventricle is normal size. There is normal left ventricular wall thickness. Left ventricular systolic function is normal. Mild diastolic dysfunction is present (impaired relaxation pattern). The right ventricle is normal size. The left atrium size is normal. The Aortic valve is mildly sclerotic. There is no mitral valve regurgitation noted. <ELECTRONICALLY SIGNED> By: Royer Aquino MD 02/18/17 1509 1509 1509 Royer Aquino MD /INF
== END ==
LOC: CV 02-11 13:25
DX: I50.30 Unspecified diastolic (congestive) heart failure (principal); I25.10 Atherosclerotic heart disease of native coronary artery without angina pectoris